=== PATIENT | female | born 1980 | race Caucasian/White ===

== ENCOUNTER 2016-10-07 07:57 | Emergency (ER) | payer MEDICAID ==
--- NOTE | 2016-10-09 16:08 | ER ---
ADMIT: 10/07/2016 RM/LOC: ER [facility] MR#: [id number] [address] [id number] [address] [place], [place] [id number] Emergency Room Report SEX: F AGE: 36 : 1980 DATE: 10/07/2016 TIME: 0757 hours. Please refer to my T-sheet for complete H and P. HISTORY OF PRESENT ILLNESS: Briefly, the patient is a 36-year-old, who came in with her son saying her neck pain is gotten worse. She has a history of neck problems. She has had surgeries x2. The last was a couple of years ago. She noticed some grinding, it has been going on for several weeks but it started hurting really bad in the last 3 days into the lower neck. She has tried her Flexeril, is not helping. No numbness or tingling down her legs and cannot think of an enticing event, rates the pain 8/10. PHYSICAL EXAMINATION: VITAL SIGNS: Blood pressure 157/77, pulse 96, respirations 18, temp 97.5, 100%. GENERAL: No acute distress. HEENT: She has tenderness throughout her neck, mostly left or centered in the back, posterior, extending down to her rhomboidal muscles. No gross midline tenderness. LUNGS: Clear. HEART: Regular. NEUROLOGIC: Alert and oriented, nonfocal. EMERGENCY DEPARTMENT COURSE: I gave her 2 Odin 5 p.o. She had a ride home, was ready for discharge. ASSESSMENT: [id number] neck pain as described. PLAN: Call her surgeon to make a followup appointment and possible imaging going for. Return if worse. Massage, rest, and stretch. To Soria MD/ jesús JOB #: [id number] CC: To Soria MD, Attending Physician Myra Grande, Family Physician Myra Grande
== END 2016-10-07 08:56 | disposition home or self-care (01) ==
LOC: ER 07:57
DX: M54.2 Cervicalgia (principal); G89.29 Other chronic pain; I10 Essential (primary) hypertension; Z90.710 Acquired absence of both cervix and uterus; Z79.899 Other long term (current) drug therapy